=== PATIENT | female | born 1955 | race Caucasian/White ===

== ENCOUNTER 2023-06-29 21:33 | Emergency (ER) | payer MEDICARE, OTHER ==
[~2023-06-29] VITALS: Ht 165.1 cm; Wt 68.0 kg
[2023-06-29] MEDS ORDERED: hydrALAZINE HCL 20 MG/1 ML VIAL ONE (22:01)
[2023-06-29] MEDS ORDERED: ACETAMINOPHEN ES 500 MG TABLET ONE (22:20)
[2023-06-29 22:22] LABS: *BILIRUBIN,URIN NEGATIVE (NEGATIVE); *BLOOD, URINE NEGATIVE (NEGATIVE); *CLARITY,URINE CLEAR (CLEAR); *COLOR,URINE YELLOW (YELLOW); *KETONES,URINE NEGATIVE (NEGATIVE); *PROTEIN,URINE NEGATIVE (NEGATIVE); *UROBILINOGEN,URINE 0.2 E.U./dl (NORMAL); LEUKOCYTE ESTERASE ,URINE NEGATIVE (NEGATIVE); NITRITE, URINE NEGATIVE (NEGATIVE); UGLUCOSE NEGATIVE (NEGATIVE)
[2023-06-29] MEDS: ACETAMINOPHEN ES 500 MG TABLET PO ONE (22:22)
[2023-06-29 22:28] LABS: CALCIUM 9.3 mg/dL (8.5-10.1); CREATININE 0.6 mg/dL (0.6-1.3); POTASSIUM 4.4 mmol/L (3.5-5.1)
[2023-06-29] MEDS: hydrALAZINE HCL 20 MG/1 ML VIAL IV ONE (23:35)
[2023-06-30] MEDS ORDERED: AMLO-212 PO (01:33)
[2023-06-30] MEDS ORDERED: DICL100G31 TP (01:33)
[2023-06-30] MEDS ORDERED: CYCL5TAB PO (01:33)
[2023-06-30 01:53] VITALS: BP 178/85; TEMP 98; O2SAT 99
== END 2023-06-30 01:45 | disposition home or self-care (01) ==
LOC: ER 21:38
DX: I16.0 Hypertensive urgency (principal); M25.552 Pain in left hip; Z79.899 Other long term (current) drug therapy
CPT/HCPCS: 99291; 74176; 96374; 80048; 81003; 84484; 36415; J0360; A4606; A4663; A9150

== ENCOUNTER 2024-09-21 18:55 | Emergency (ER) | payer MEDICARE, OTHER ==
[~2024-09-21] VITALS: Ht 157.5 cm; Wt 68.0 kg
[~2024-09-21 18:55] MED LIST: AMLO-212 PO; CEPH500T PO; CYCL5TAB PO; DICL100G31 TP; FLUC150T PO
[2024-09-21] MEDS: AMLODIPINE 5 MG TABLET PO ONE (20:01)
[2024-09-21 20:05] VITALS: BP 180/93; O2SAT 99
== END 2024-09-21 20:06 | disposition home or self-care (01) ==
LOC: ER 19:08
DX: I10 Essential (primary) hypertension (principal)
CPT/HCPCS: A4606; A4663